=== PATIENT | female | born 1950 | race Caucasian/White ===

== ENCOUNTER 2016-04-23 16:43 | Outpatient (CLI) | payer OTHER ==
--- NOTE | 2016-04-23 17:15 | DIAGNOSTIC IMAGING REPORT ---
PROCEDURE: XR CHEST 2 VIEW INDICATION: COPD AND PNEUMONIA TECHNIQUE: PA and lateral views. COMPARISON: Chest 04/02/2016 and 04/18/2010 and 03/11/16 FINDINGS: No change in the left lower lobe infiltrate. There is blunting of the right costophrenic angle. IMPRESSION: 1. No change in the left lower lobe infiltrate.
== END 2016-04-23 23:00 ==
LOC: XR SRH 16:43
DX: J44.9 Chronic obstructive pulmonary disease, unspecified (principal); J18.9 Pneumonia, unspecified organism

== ENCOUNTER 2016-04-25 13:28 | Outpatient (CLI) | payer OTHER ==
--- NOTE | 2016-04-28 11:49 | DIAGNOSTIC IMAGING REPORT ---
PROCEDURE: CT THORAX WITH CONTRAST INDICATION: Cough, initial encounter TECHNIQUE: 95 ml of Isovue 300 was injected intravenously and axial images were obtained of the chest with coronal and sagittal reformations. COMPARISON: Chest x-ray 04/23/[address] abdomen/pelvis 05/01/2013 FINDINGS: Minor bibasilar scarring. No evidence of pneumonia. No adenopathy or effusion. Tortuous aorta with aneurysmal dilation of the descending thoracic aorta which measures 4.5 cm, with small peripheral thrombus formation.. There are also three small saccular aneurysms (3 mm) arising from the mid to distal thoracic aorta. Coronary atherosclerosis. Heart size is normal. Infrarenal abdominal aortic aneurysm with maximal transverse diameter of the proximal abdominal aorta is 5.3 cm (previously 4.2 cm) with large peripheral thrombus formation. Mild degenerative changes of the spine. IMPRESSION: 1. No evidence of pneumonia 2. Tortuous thoracic aorta with diffuse aneurysmal dilation of the descending aorta (4.5 cm) with three small (3 mm) mid thoracic area blebs 3. Infrarenal abdominal aortic aneurysm measures 5.3 cm (previously 4.2 cm). 4. Results discussed Dr. Donis
== END 2016-04-25 23:00 ==
LOC: CT SRH 13:28
DX: I71.4 Abdominal aortic aneurysm, without rupture (principal)
CPT/HCPCS: 90065; 90074; 90100; 91286; 91320; 92031; 92690; 93004; 95059

== ENCOUNTER 2016-06-25 16:38 | Outpatient (CLI) | payer OTHER ==
--- NOTE | 2016-06-25 17:14 | DIAGNOSTIC IMAGING REPORT ---
PROCEDURE: XR CHEST 2 VIEW INDICATION: DIZZYNESS TECHNIQUE: PA and lateral views. COMPARISON: Chest 04/23/2016 and 04/02/2016 FINDINGS: There is new infiltrate or atelectasis in the right lower lobe. This is seen on the lateral view. Heart and mediastinum are normal. Thorax is normal. IMPRESSION: 1. Right lower lobe infiltrate.
== END 2016-06-25 23:00 ==
LOC: XR SRH 16:38 → LAB SRH 16:38
DX: R42 Dizziness and giddiness (principal); R91.8 Other nonspecific abnormal finding of lung field
CPT/HCPCS: 90065; 90074; 90100; 90101; 91504; 93004; 93010; 93140; 95059

== ENCOUNTER 2016-06-26 16:05 | Outpatient (CLI) | payer OTHER ==
--- NOTE | 2016-06-26 17:20 | DIAGNOSTIC IMAGING REPORT ---
PROCEDURE: MR BRAIN WITHOUT CONTRAST INDICATION: Dizziness and tinnitus. Chronic headaches. TECHNIQUE: T1 sagittal images. T2 coronal images. T1, T2, FLAIR, gradient echo, and diffusion axial images with ADC map COMPARISON: Comparison made MRI brain and internal auditory canals on 01/30/2014. FINDINGS: There is moderate old small vessel disease of the white matter with old lacunar infarcts in the basal ganglia, and right cerebellar hemisphere. There is no evidence of acute process (diffusion imaging). There is no evidence of mass effect or hydrocephalous. There are mild secretions in the posterior aspect of the right maxillary sinus. Sinuses and mastoids are otherwise normal. Portions of the orbits are seen, and are normal. IMPRESSION: 1. 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 2. No change. No evidence of acute process. 3. Mild secretions in the right maxillary sinus (most likely incidental finding).
== END 2016-06-26 23:00 | disposition home or self-care (01) ==
LOC: MRI SRH 16:05
DX: R42 Dizziness and giddiness (principal); R90.82 White matter disease, unspecified

== ENCOUNTER → 2016-08-29 | Outpatient (CLI) | payer OTHER ==
--- NOTE | 2016-08-29 16:16 | DIAGNOSTIC IMAGING REPORT ---
PROCEDURE: CTA THORAX ABDOMEN PELVIS INDICATION: ABD PAIN,WEAKNESS R/O DISSECTING AAA TECHNIQUE: 125 ml of Isovue 370 was injected intravenously and axial images were obtained of the chest, abdomen, and pelvis with 3D sagittal and coronal MIP reconstructions. COMPARISON: None. FINDINGS: Tortuous, ectatic, and aneurysmal thoracic aorta with moderate noncalcified atherosclerosis beginning at the arch, and eccentrically through the descending thoracic aorta. The ascending aorta is ectatic measuring about 3.5 cm in AP diameter, stable. The descending aorta at the distal arch is 3.8 cm, stable. It courses to the right posterior mediastinum at, and just below the level of the carola where it measures approximately 3.4 cm, stable. Mid descending thoracic aorta measures 3.9 cm, stable. At the aortic hiatus, it courses back to the left posterior mediastinum. Proximal subdiaphragmatic aorta is ectatic, with irregular margins secondary to thrombosed circumferential luminal thrombus. Morphology is stable. 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 There is progressive stenosis of the celiac artery origin. The SMA origin morphology remains normal and patent. At the level of the left renal vein, the aorta measures 4.5 cm in AP diameter. Distal to this, there is circumferential thrombus in the aneurysm measures about 5.8 cm in AP diameter, previously 5.5 cm. At the level of the crossing transverse colon the AP diameter is 5.9 cm, previously 5.6 cm. Distally, the perfused lumen has decreased in size, but the diameter of the aneurysm sac is relatively stable and 4.8 cm. Both common iliac arteries demonstrate stenosis at the origins, but distally are patent although there is heavy calcific atherosclerosis bilaterally. No evidence of periaortic inflammation or extravasation. No evidence of aortic dissection. Left vertebral artery is chronically diminutive. Moderate narrowing at the left common carotid artery origin, chronic. Moderate coronary atherosclerosis. Normal sized heart without pericardial effusion. Mild tree in bud nodularity at the lung bases bilaterally and mild bilateral lower lobe bronchiectasis, similar compared to the prior study. No effusion. Stable right adrenal nodularity. The liver, decompressed gallbladder, left kidney, spleen, and pancreas appear normal. 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 Normal stomach and small bowel loops. The descending colon is decompressed and demonstrates mild circumferential wall edema and occasional diverticulosis. No significant pericolonic inflammation. There is chronic severe sigmoid diverticulosis without acute pericolonic inflammatory changes. The uterus is surgically absent. Urinary bladder is decompressed. There is atherosclerosis of the pelvic vasculature which appears normally perfused. No free pelvic fluid or adenopathy. Mildly demineralized osseous structures with degenerative disc endplate change at L4-5. . IMPRESSION: 1. No evidence of aortic dissection, rupture, or intramural hematoma. 2. Thoracoabdominal aneurysm with mild enlargement of the mid to distal abdominal aortic aneurysm sac since the previous study with stable to decreased perfused lumen diameter. 3. Mild tree in bud nodularity at both lung bases with lower lobe bronchiectasis. No dense parenchymal consolidation. Findings are similar compared to the prior study and may be indicative of an infectious/inflammatory, or atypical process. 4. Mild edema throughout the descending colon and sigmoid colon wall without pericolonic inflammation. There is moderate diverticulosis and this may represent early acute diverticulitis or infectious colitis. Correlate clinically. 5. Chronic right lower pole renal infarct. 6. Discussed with Dr. Donis.
== END ==
LOC: CT SRH 13:24
DX: I71.6 Thoracoabdominal aortic aneurysm, without rupture (principal); R60.9 Edema, unspecified; K57.30 Diverticulosis of large intestine without perforation or abscess without bleeding; N28.0 Ischemia and infarction of kidney

== ENCOUNTER → 2016-08-29 | Outpatient (CLI) | payer OTHER ==
--- NOTE | 2016-08-29 13:53 | DIAGNOSTIC IMAGING REPORT ---
PROCEDURE: XR CHEST 2 VIEW INDICATION: WEAKNESS TECHNIQUE: PA and lateral views. COMPARISON: Chest 06/25/2016 and 04/23/2016 FINDINGS: Scarring at the right costophrenic angle. Lungs are clear. Heart size is normal. Tortuous aorta. IMPRESSION: 1. No acute disease
== END ==
LOC: LAB SRH 13:14
DX: R53.1 Weakness (principal); R42 Dizziness and giddiness
CPT/HCPCS: 90065; 90074; 90100; 90469; 90616; 92031; 92235; 92530; 92610; 93004; 93140; 95059; 95150; 98100